=== PATIENT | male | born 1975 | race Caucasian/White ===

== ENCOUNTER 2020-12-02 14:23 | Emergency (ER) | payer OTHER ==
[2020-12-02 14:35] VITALS: BP 154/91; PULSE 78; TEMP 97; BMI 37.2
[2020-12-02] MEDS ORDERED: SODIUM CHLORIDE 1,000 ML IV STA ×2 (15:09→17:16)
[2020-12-02] MEDS ORDERED: ONDANSETRON 4 MG/2 ML VIAL IVPUSH ONE (15:10)
[2020-12-02] MEDS ORDERED: morphine CARPU-JECT 4 MG/1 ML DISP.SYRIN IVPUSH ONE (15:10)
[2020-12-02] MEDS ORDERED: ONDANSETRON 4 MG/2 ML VIAL ONE (15:55)
[2020-12-02] MEDS ORDERED: morphine SULFATE 4 MG/ML VIAL ONE (16:02)
[2020-12-02 16:09] LABS: BASO % 0.8 % (0-2.0); EOS % 2.8 % (0-4.5); HEMATOCRIT 33.5 % (35.4-49); LYMPH % 27.6 % (8-40); MCH 27.9 pg (25.7-33.7); MCHC 32.8 g/dl (32.0-35.9); MEAN PLT VOLUME 8.8 fl (7.5-11.1); MONO % 6.9 % (3.8-10.2); NEUT % 61.9 % (42.8-82.8); PLATELET COUNT 265 10^3/uL (134-434); RBC 3.94 M/mm3 (4.00-5.60); RDW 13.5 % (11.9-15.9); WHITE BLOOD COUNT 8.3 K/mm3 (4.0-10.0)
[2020-12-02 16:34] LABS: CALCIUM 8.4 mg/dL (8.5-10.1)
[2020-12-02 16:35] LABS: ALBUMIN 3.1 g/dl (3.4-5.0)
[2020-12-02 16:37] LABS: CREATININE 1.5 mg/dL (0.55-1.3)
[2020-12-02 16:39] LABS: BILIRUBIN,TOTAL 0.5 mg/dL (0.2-1); TOT PROT 6.7 g/dl (6.4-8.2)
[2020-12-02 18:15] LABS: PH,URINE 5.5 (5.0-8.0); URINE APPEARANCE Clear; URINE BILIRUBIN Negative (NEGATIVE); URINE COLOR Yellow; URINE GLUCOSE (UA) Trace (NEGATIVE); URINE KETONE Negative (NEGATIVE); URINE LEUK ESTERASE Negative (NEGATIVE); URINE NITRITE Negative (NEGATIVE); URINE PROTEIN 3+ (NEGATIVE); URINE UROBILINOGEN 0.2 mg/dL (0.2-1.0)
[2020-12-02 18:40] LABS: EPI CELLS 33.4 /uL (0-25.1); HYALINE CASTS 12.44 /uL (0-3.1); URINE BACTERIA 10.2 /uL (0-1359); URINE RBC 17.5 /uL (0-23.9); URINE WBC 20.3 /uL (0-25.8)
== END 2020-12-02 20:32 | disposition home or self-care (01) ==
LOC: JER 14:23
PROC: 3E033GC Introduction of Other Therapeutic Substance into Peripheral Vein, Percutaneous Approach (ICD-10-PCS; principal; 2020-12-02)
DX: R10.32 Left lower quadrant pain (principal)
CPT/HCPCS: 36415; 74177-TC; 80053; 81003; 83690; 85025; 87086; 99285-25; Q9967

== ENCOUNTER 2021-07-06 09:29 | Emergency (ER) | payer OTHER ==
[2021-07-06 09:33] VITALS: BMI 34.9
[2021-07-06] MEDS ORDERED: morphine CARPU-JECT 4 MG/1 ML DISP.SYRIN IVPUSH ONE ×2 (09:56→10:56)
[2021-07-06] MEDS ORDERED: SODIUM CHLORIDE 0.9% 500 ML INFUS.BAG IV ONE (09:56)
[2021-07-06] MEDS ORDERED: morphine SULFATE 4 MG/ML VIAL ONE ×2 (10:02→10:57)
[2021-07-06] MEDS ORDERED: ACETAMINOPHEN 1000 MG/100 ML BAG IVPB ONE (10:56)
[2021-07-06 10:58] LABS: BASO % 0.6 % (0-2.0); EOS % 2.3 % (0-4.5); HEMATOCRIT 35.6 % (35.4-49); HEMOGLOBIN 11.3 GM/dL (11.7-16.9); LYMPH % 24.9 % (8-40); MCH 28.1 pg (25.7-33.7); MCHC 31.7 g/dl (32.0-35.9); MEAN CELL VOLUME 88.4 fl (80-96); MEAN PLT VOLUME 10.1 fl (7.5-11.1); MONO % 7.1 % (3.8-10.2); NEUT % 65.1 % (42.8-82.8); PLATELET COUNT 251 10^3/uL (134-434); RBC 4.03 M/mm3 (4.00-5.60); RDW 13.7 % (11.9-15.9); WHITE BLOOD COUNT 6.1 K/mm3 (4.0-10.0)
[2021-07-06] MEDS ORDERED: ACETAMINOPHEN INJECTION 100 ML IVPB ONE (10:58)
[2021-07-06 11:11] LABS: BLOOD UREA NITROGEN 18.8 mg/dL (7-18); CALCIUM 8.4 mg/dL (8.5-10.1)
[2021-07-06 11:13] LABS: CREATININE 1.7 mg/dL (0.55-1.3)
[2021-07-06 11:16] LABS: BILIRUBIN,TOTAL 0.3 mg/dL (0.2-1); TOT PROT 6.5 g/dl (6.4-8.2)
[2021-07-06 11:22] LABS: EPI CELLS 31 /uL (0-25.1); HYALINE CASTS 11 /uL (0-3.1); URINE APPEARANCE CLEAR; URINE BACTERIA 1 /uL (0-1359); URINE BILIRUBIN NEGATIVE (NEGATIVE); URINE COLOR YELLOW; URINE GLUCOSE (UA) TRACE (NEGATIVE); URINE KETONE TRACE (NEGATIVE); URINE LEUK ESTERASE NEGATIVE (NEGATIVE); URINE NITRITE NEGATIVE (NEGATIVE); URINE PROTEIN 4+ (NEGATIVE); URINE UROBILINOGEN 0.2 mg/dL (0.2-1.0); URINE WBC 14 /uL (0-25.8)
[2021-07-06 11:25] LABS: INR 1.2 (0.83-1.09); PROTHROMBIN TIME (PATIENT) 13.8 SEC (9.7-13.0)
[2021-07-06 13:55] VITALS: BP 141/66; PULSE 47; TEMP 98
[2021-07-06 17:26] LABS: URINE RBC 22.3 /uL (0-23.9)
== END 2021-07-06 15:14 | disposition home or self-care (01) ==
LOC: JER 09:29
PROC: 3E033GC Introduction of Other Therapeutic Substance into Peripheral Vein, Percutaneous Approach (ICD-10-PCS; principal; 2021-07-06)
DX: R10.84 Generalized abdominal pain (principal)
CPT/HCPCS: 36415; 74177-TC; 80053; 81003; 83605; 83690; 84484; 85025; 85610; 87086; 93005; 93010; 99285-25; J0131; Q9967

== ENCOUNTER 2021-11-11 12:01 | Emergency (ER) | payer OTHER ==
[2021-11-11 12:10] VITALS: BP 135/78; PULSE 82; TEMP 98.2; BMI 33.0
[2021-11-11 12:55] LABS: BASO % 0.5 % (0-2.0); EOS % 3.3 % (0-4.5); HEMATOCRIT 34.6 % (35.4-49); HEMOGLOBIN 11.2 GM/dL (11.7-16.9); LYMPH % 29.6 % (8-40); MCH 28.1 pg (25.7-33.7); MCHC 32.4 g/dl (32.0-35.9); MEAN CELL VOLUME 86.5 fl (80-96); MEAN PLT VOLUME 9.1 fl (7.5-11.1); MONO % 7.7 % (3.8-10.2); NEUT % 58.9 % (42.8-82.8); PLATELET COUNT 222 10^3/uL (134-434); RDW 14.5 % (11.9-15.9); WHITE BLOOD COUNT 5.8 K/mm3 (4.0-10.0)
[2021-11-11 13:08] LABS: ACTIVATED PTT 35.5 SECONDS (25.2-36.5); INR 1.08 (0.83-1.09); PROTHROMBIN TIME (PATIENT) 12.4 SEC (9.7-13.0)
[2021-11-11 13:21] LABS: CALCIUM 8.7 mg/dL (8.5-10.1)
[2021-11-11 13:22] LABS: BLOOD UREA NITROGEN 22.2 mg/dL (7-18)
[2021-11-11 13:25] LABS: CREATININE 1.4 mg/dL (0.55-1.3)
[2021-11-11 13:26] LABS: BILIRUBIN,TOTAL 0.2 mg/dL (0.2-1); TOT PROT 6.6 g/dl (6.4-8.2)
[2021-11-11] MEDS ORDERED: LACTATED RINGERS SOLUTION 1000 ML INFUS.BAG IV ONE (13:47)
== END 2021-11-11 15:05 | disposition home or self-care (01) ==
LOC: JER 12:01
DX: R20.2 Paresthesia of skin (principal)
CPT/HCPCS: 36415; 70450-TC; 80053; 83735; 85025; 85610; 85730; 86850; 86900; 86901; 93005; 93010; 99285-25

== ENCOUNTER 2022-05-18 06:18 | Emergency (ER) | payer OTHER ==
[2022-05-18 06:38] VITALS: BP 199/93; PULSE 69; RESP 18; TEMP 97.5; BMI 31.1
[2022-05-18] MEDS ORDERED: morphine CARPU-JECT 4 MG/1 ML DISP.SYRIN IVPUSH ONE (07:49)
[2022-05-18] MEDS ORDERED: ONDANSETRON 4 MG/2 ML VIAL IVPUSH ONE (07:50)
[2022-05-18] MEDS ORDERED: FAMOTIDINE 20 MG/50 ML IVPB 20 MG/50 ML MG IVPB ONE ×2 (07:50→09:00)
[2022-05-18] MEDS ORDERED: SODIUM CHLORIDE 0.9% 1000 ML INFUS.BAG IV ONE (07:50)
[2022-05-18 07:59] LABS: EPI CELLS 32 /uL (0-25.1); HYALINE CASTS 1 /uL (0-3.1); PH,URINE 5.5 (5.0-8.0); URINE APPEARANCE CLEAR; URINE BACTERIA 267 /uL (0-1359); URINE BILIRUBIN NEGATIVE (NEGATIVE); URINE COLOR YELLOW; URINE GLUCOSE (UA) 1+ (NEGATIVE); URINE KETONE NEGATIVE (NEGATIVE); URINE LEUK ESTERASE NEGATIVE (NEGATIVE); URINE NITRITE NEGATIVE (NEGATIVE); URINE PROTEIN 4+ (NEGATIVE); URINE RBC 16 /uL (0-23.9); URINE UROBILINOGEN 0.2 mg/dL (0.2-1.0); URINE WBC 22 /uL (0-25.8)
[2022-05-18] MEDS ORDERED: morphine SULFATE 4 MG/ML VIAL ONE ×2 (08:41→12:53)
[2022-05-18] MEDS ORDERED: ONDANSETRON 4 MG/2 ML VIAL ONE (08:59)
[2022-05-18 09:56] LABS: BASO % 0.6 % (0-2.0); EOS % 1.2 % (0-4.5); HEMATOCRIT 37.2 % (35.4-49); HEMOGLOBIN 11.8 GM/dL (11.7-16.9); LYMPH % 26.5 % (8-40); MCH 28.1 pg (25.7-33.7); MCHC 31.7 g/dl (32.0-35.9); MEAN CELL VOLUME 88.6 fl (80-96); MEAN PLT VOLUME 9.7 fl (7.5-11.1); MONO % 7.6 % (3.8-10.2); NEUT % 64.1 % (42.8-82.8); PLATELET COUNT 311 10^3/uL (134-434); RDW 13.1 % (11.9-15.9); WHITE BLOOD COUNT 7.1 K/mm3 (4.0-10.0)
[2022-05-18 10:03] LABS: INR 1.21 (0.83-1.09)
[2022-05-18 10:06] LABS: ACTIVATED PTT 36.9 SECONDS (25.2-36.5)
[2022-05-18 10:07] LABS: CALCIUM 8.8 mg/dL (8.5-10.1)
[2022-05-18 10:08] LABS: ALBUMIN 2.8 g/dl (3.4-5.0); BLOOD UREA NITROGEN 23.1 mg/dL (7-18); MAGNESIUM 1.7 mg/dL (1.8-2.4)
[2022-05-18 10:11] LABS: CREATININE 1.5 mg/dL (0.55-1.3)
[2022-05-18 10:12] LABS: BILIRUBIN,TOTAL 0.3 mg/dL (0.2-1); TOT PROT 6.7 g/dl (6.4-8.2)
[2022-05-18] MEDS ORDERED: ACETAMINOPHEN 1000 MG/100 ML BAG IVPB ONE (11:07)
[2022-05-18] MEDS ORDERED: morphine SULFATE 4 MG/ML VIAL IVPUSH ONE (12:04)
[2022-05-18] MEDS ORDERED: ACETAMINOPHEN INJECTION 100 ML IVPB ONE (12:53)
== END 2022-05-18 14:35 | disposition home or self-care (01) ==
LOC: JER 06:18
PROC: 3E033GC Introduction of Other Therapeutic Substance into Peripheral Vein, Percutaneous Approach (ICD-10-PCS; principal; 2022-05-18)
DX: R10.84 Generalized abdominal pain (principal)
CPT/HCPCS: 0241U-QW; 36415; 74176-TC; 80053; 81003; 83690; 83735; 85025; 85610; 85730; 86850; 86900; 86901; 87086; 99285-25

== ENCOUNTER 2023-10-25 13:44 | Emergency (ER) | payer BC, OTHER ==
[2023-10-25 13:58] VITALS: BP 151/80; PULSE 78; RESP 18; TEMP 98.3; BMI 36.5
[2023-10-25] MEDS ORDERED: ALBUTEROL SO4 2.5/IPRATROPIUM 0.5 INH SOL 3 ML VIAL.NEB. NEB ONE ×2 (14:57→15:43)
[2023-10-25] MEDS ORDERED: IBUPROFEN 400 MG TABLET (FP) PO ONE (14:58)
[2023-10-25] MEDS: IBUPROFEN 400 MG TABLET (FP) PO ONE (14:59)
[2023-10-25] MEDS: ALBUTEROL SO4 2.5/IPRATROPIUM 0.5 INH SOL 3 ML VIAL.NEB. NEB ONE ×2 (14:59→15:44)
[2023-10-25] MEDS ORDERED: predniSONE 20 MG TABLET (UD) ONE (15:44)
[2023-10-25] MEDS: predniSONE 20 MG TABLET (UD) PO ONE (15:44)
== END 2023-10-25 16:38 | disposition home or self-care (01) ==
LOC: JERFT 13:44
PROC: 3E0F7GC Introduction of Other Therapeutic Substance into Respiratory Tract, Via Natural or Artificial Opening (ICD-10-PCS; principal; 2023-10-25)
PROC: 3E0F7GC Introduction of Other Therapeutic Substance into Respiratory Tract, Via Natural or Artificial Opening (ICD-10-PCS; 2023-10-25)
DX: S66.912A Strain of unspecified muscle, fascia and tendon at wrist and hand level, left hand, initial encounter (principal); J45.901 Unspecified asthma with (acute) exacerbation; R05.1 Acute cough; X50.1XXA Overexertion from prolonged static or awkward postures, initial encounter
CPT/HCPCS: 71046-TC-FY; 99284-25

== ENCOUNTER 2024-03-21 16:15 | Emergency (ER) | payer OTHER ==
[2024-03-21 16:41] VITALS: BP 117/75; PULSE 64; RESP 18; TEMP 97.8; BMI 36.5
[2024-03-21 18:58] LABS: BASO % 0.5 % (0-2.0); EOS % 4.3 % (0-4.5); HEMATOCRIT 34.5 % (35.4-49); HEMOGLOBIN 11.1 GM/dL (11.7-16.9); LYMPH % 45.1 % (8-40); MCH 28.7 pg (25.7-33.7); MCHC 32.2 g/dl (32.0-35.9); MEAN PLT VOLUME 8.6 fl (7.5-11.1); NEUT % 42.1 % (42.8-82.8); PLATELET COUNT 236 10^3/uL (134-434); RBC 3.88 M/mm3 (4.00-5.60); WHITE BLOOD COUNT 6.7 K/mm3 (4.0-10.0)
[2024-03-21] MEDS ORDERED: ACETAMINOPHEN INJECTION 100 ML ONE (19:04)
[2024-03-21 19:07] LABS: INR 1.1 (0.83-1.09); PROTHROMBIN TIME (PATIENT) 12.4 SEC (9.7-13.0)
[2024-03-21] MEDS: ACETAMINOPHEN 1000 MG/100 ML BAG IVPB ONE (19:07)
[2024-03-21 19:09] LABS: ACTIVATED PTT 38.9 SECONDS (25.2-36.5)
[2024-03-21 19:23] LABS: POTASSIUM 4.9 mmol/L (3.5-5.1)
[2024-03-21 19:25] LABS: ALBUMIN 3.5 g/dl (3.4-5.0); BLOOD UREA NITROGEN 38.9 mg/dL (7-18); CALCIUM 8.5 mg/dL (8.5-10.1)
[2024-03-21 19:29] LABS: CREATININE 2.3 mg/dL (0.55-1.3)
[2024-03-21 19:30] LABS: BILIRUBIN,TOTAL 0.3 mg/dL (0.2-1)
== END 2024-03-21 23:03 | disposition left against medical advice (07) ==
LOC: JERFT 16:15
PROC: 3E033NZ Introduction of Analgesics, Hypnotics, Sedatives into Peripheral Vein, Percutaneous Approach (ICD-10-PCS; principal; 2024-03-21)
DX: I80.03 Phlebitis and thrombophlebitis of superficial vessels of lower extremities, bilateral (principal); R07.9 Chest pain, unspecified; M79.89 Other specified soft tissue disorders; Z20.822 Contact with and (suspected) exposure to COVID-19
CPT/HCPCS: 0241U-QW; 36415; 71046-TC-FY; 80053; 84484; 85025; 85610; 85730; 93005; 93010; 93970-TC; 99285-25; J0131

== ENCOUNTER 2024-09-21 19:21 | Emergency (ER) | payer OTHER ==
[2024-09-21 19:39] VITALS: BP 125/72; PULSE 65; RESP 18; TEMP 98.8; BMI 37.2
[2024-09-21] MEDS ORDERED: KETOROLAC TROMETHAMINE 30 MG/1 ML VIAL ONE (20:45)
[2024-09-21] MEDS: KETOROLAC TROMETHAMINE 30 MG/1 ML VIAL IM ONE (20:49)
== END 2024-09-21 20:50 | disposition home or self-care (01) ==
LOC: JERFT 19:21 → JER 19:21 → JERFT 20:50
PROC: 3E0233Z Introduction of Anti-inflammatory into Muscle, Percutaneous Approach (ICD-10-PCS; principal; 2024-09-21)
DX: M54.41 Lumbago with sciatica, right side (principal)
CPT/HCPCS: 99284-25